=== PATIENT | female | born 1965 | race Caucasian/White ===

== ENCOUNTER 2020-11-27 15:43 | Emergency (ER) | payer BC ==
--- NOTE | 2020-11-27 17:14 | ED ---
General Adult HPI <Jose C Toribio - Last Filed: 11/27/20 17:13> <Haydee Gold - Last Filed: 11/27/20 23:31> - General Stated complaint: Female UG - History of Present Illness Initial comments: 55-year-old female presents to the emergency Department with a chief complaint of a vaginal lesion. Patient reports this been ongoing for the past several months. States it is located in the labia and it is starting to be tender now. Does report some swelling with white and purple discoloration. Has history of a Bartholin's cyst about 3 decades ago. Denies any urinary symptoms. Denies any fevers or chills. Denies abdominal pain. Denies any vaginal bleeding, discharge. Denies fevers or chills. (Jose C Toribio) - Related Data Allergies Allergy/AdvReac Type Severity Reaction Status Date / Time No Known Allergies Allergy Verified 11/27/20 17:16 Review of Systems ROS Other: All systems not noted in ROS Statement are negative. <Jose C Toribio - Last Filed: 11/27/20 17:13> ROS Other: All systems not noted in ROS Statement are negative. <Haydee Gold - Last Filed: 11/27/20 23:31> ROS Statement: Those systems with pertinent positive or pertinent negative responses have been documented in the HPI. Course Vital Signs 11/27/20 17:08 Temperature 98.0 F Pulse Rate 87 Respiratory 20 Rate Blood Pressure 181/78 O2 Sat by Pulse 99 Oximetry Medical Decision Making <Haydee Gold - Last Filed: 11/27/20 23:31> - Medical Decision Making Upon arrival patient is placed into room 21. Thorough history and physical exam is performed. Evaluation of the patient's vagina demonstrates a large lesion located adjacent to the urethral opening on the right labia minora. 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 Patient is informed that these have cancerous potential and that it must be removed by an PROPULSION ENGINEER. Patient understood this. She was given multiple referrals for PROPULSION ENGINEER's in the area. Instructed to call Dr. Pandya first as she is on-call. Patient understood this. Given written and verbal discharge instructions and discharged home in stable condition (Haydee Gold) - Lab Data Lab Results 11/27/20 Range/Units 17:25 Urine Color Light Yellow Urine Appearance Cloudy H (Clear) Urine pH 5.5 (5.0-8.0) Ur Specific [place] 1.011 (1.001-1.035) Urine Protein Negative (Negative) Urine Glucose (UA) Negative (Negative) Urine Ketones Negative (Negative) Urine Blood Trace H (Negative) Urine Nitrite Negative (Negative) Urine Bilirubin Negative (Negative) Urine Urobilinogen <2.0 (<2.0) mg/dL Ur Leukocyte Esterase Large H (Negative) Urine RBC 6 H (0-5) /hpf Urine WBC 135 H (0-5) /hpf Ur Squamous Epith Cells 14 H (0-4) /hpf Urine Bacteria Rare H (None) /hpf Urine Mucus Rare H (None) /hpf Disposition <Jose C Toribio - Last Filed: 11/27/20 17:13> Is patient prescribed a controlled substance at d/c from ED?: No Time of Disposition: 18:58 <Haydee Gold - Last Filed: 11/27/20 23:31> Clinical Impression: Vaginal mass Disposition: HOME SELF-CARE Condition: Stable Instructions (If sedation given, give patient instructions): Genital Warts (ED) Additional Instructions: You have a mass on your vagina. You need to see an OBGYN in order to have it removed. Return to the ED for any new or worsening symptoms. Dr. Pandya is the showroom consultant doctor that you should call first. Dr. Martinez is a physican out of [facility] Referrals: Ilene Pandya MD [STAFF PHYSICIAN] - 1-2 days Wili Quijano DO [Doctor of Osteopathic Medicine] - 1-2 days Haydee Martinez DO [Doctor of Osteopathic Medicine] - 1-2 days
[2020-11-27 17:16] VITALS: BP 181/78; PULSE 87; RESP 20; TEMP 98
[2020-11-27 17:39] LABS: Appearance,Urine Cloudy (Clear); Bacteria,Urine Rare /hpf; Bilirubin,Urine Negative (Negative); Blood,Urine Trace (Negative); Color,Urine Light Yellow; Glucose,Urine (UA) Negative (Negative); Ketones,Urine Negative (Negative); Leukocyte Esterase,Urine Large (Negative); Mucus,Urine Rare /hpf; Nitrite,Urine Negative (Negative); PH, Urine 5.5 (5.0-8.0); Protein,Urine Negative (Negative); RBC,Urine 6 /hpf (0-5); Specific Gravity,Urine 1.011 (1.001-1.035); Squamous Epithelial Cell,Urine 14 /hpf (0-4); Urobilinogen,Urine <2.0 mg/dL (<2.0); WBC,Urine 135 /hpf (0-5)
== END 2020-11-27 19:04 | disposition home or self-care (01) ==
LOC: EC 15:43
DX: N89.8 Other specified noninflammatory disorders of vagina (principal)
CPT/HCPCS: 81001; 87086; 99283

== ENCOUNTER → 2021-05-08 | Outpatient (CLI) | payer BC | END | disposition home or self-care (01) | LOC: LABWHC1 15:57 | PROVIDERS: ATTEND Internal Medicine Medical Oncology | DX: R79.89 Other specified abnormal findings of blood chemistry (principal) | CPT/HCPCS: 36415; 84439; 84443; 84481 ==

== ENCOUNTER → 2022-02-24 | Outpatient (CLI) | payer BC ==
[2022-02-24 23:18] LABS: Basophils # (A) 0.03 X 10*3/uL (0.00-0.10); Basophils % (A) 0.4 %; Eosinophils # (A) 1.33 X 10*3/uL (0.04-0.35); Eosinophils % (A) 17.8 %; HCT 35.1 % (37.2-46.3); Immature Grans, Automated 0.1 %; MCH 29.2 pg (27.0-32.0); MCHC 31.3 g/dL (32.0-37.0); MCV 93.1 fL (80.0-97.0); Monocytes % (A) 6.7 %; NRBC Per 100 WBC 0 /100 WBCS (0.0-0.0); Neutrophils # (A) 4.41 X 10*3/uL (1.80-7.70); Platelet Count 244 X 10*3/uL (140-440); RBC 3.77 X 10*6/uL (4.10-5.20); RBC Morphology NORMAL; RDW 14.6 % (11.5-14.5); WBC 7.48 X 10*3/uL (4.50-10.00)
== END | disposition home or self-care (01) ==
LOC: LABWHC1 15:40
PROVIDERS: ATTEND Internal Medicine Medical Oncology
DX: D64.9 Anemia, unspecified (principal)
CPT/HCPCS: 36415; 85025

== ENCOUNTER 2022-12-08 10:22 | Emergency (ER) | payer BC ==
[2022-12-08] MEDS ORDERED: SODIUM CHLORIDE 0.9% 2,000 ML IV STA (10:56)
[2022-12-08] MEDS ORDERED: KETOROLAC 15 MG/ML 1 ML VIAL IVP STA (11:02)
[2022-12-08 11:47] LABS: Basophils % (A) 0 %; Eosinophils % (A) 0 %; HCT 34.5 % (34.0-46.0); Lymphocytes # (A) 1.2 k/uL (1.0-4.8); Lymphocytes % (A) 15 %; MCH 28.7 pg (25.0-35.0); MCHC 34.7 g/dL (31.0-37.0); MCV 82.7 fL (80.0-100.0); Mean Platelet Volume 7.6; Monocytes # (A) 0.6 k/uL (0-1.0); Monocytes % (A) 7 %; Neutrophils # (A) 6.4 k/uL (1.3-7.7); Neutrophils % (A) 76 %; Platelet Count 207 k/uL (150-450); RBC 4.16 m/uL (3.80-5.40); RDW 14.8 % (11.5-15.5); WBC 8.4 k/uL (3.8-10.6)
[2022-12-08 12:01] LABS: Albumin 3.5 g/dL (3.5-5.0); Calcium 8.6 mg/dL (8.4-10.2); Potassium 3.8 mmol/L (3.5-5.1); Total Bilirubin 1.3 mg/dL (0.2-1.3); Total Protein 6.7 g/dL (6.3-8.2)
--- NOTE | 2022-12-08 13:16 | CT ---
EXAMINATION TYPE: CT abdomen pelvis w con CT DLP: 79.9 mGycm, Automated exposure control for dose reduction was used. DATE OF EXAM: 12/08/2022 12:55 PM COMPARISON: CT abdomen pelvis most recent from 03/19/2022. CLINICAL INDICATION:Female, 57 years old with history of LLQ pain; TECHNIQUE: Axial CT of the abdomen and pelvis. Sagittal and coronal reformats were created on a [employer] workstation. Contrast used: Isovue 300 100 cc. Oral contrast used: None FINDINGS: LOWER CHEST: Unremarkable ABDOMEN LIVER: Unremarkable GALLBLADDER AND BILE DUCTS: Unremarkable. PANCREAS: Unremarkable. SPLEEN: Splenule is present. ADRENAL GLANDS: Unremarkable. KIDNEYS AND URETERS: No evidence of hydronephrosis or renal calculus. The ureters are unremarkable. PELVIS BLADDER: Unremarkable REPRODUCTIVE: Unremarkable. ABDOMEN & PELVIS STOMACH AND BOWEL: No evidence of bowel obstruction. PERITONEUM/RETROPERITONEUM: No evidence of pneumoperitoneum or free fluid. VASCULATURE: No evidence of aortic aneurysm. There is loss of visualization of the left external marcy c vein with reconstitution at the common iliac vein. MUSCULOSKELETAL: There is soft tissue masses within the left external iliac chain measuring up to 6.9 x 5.1 cm and 3.0 x 2.1 cm. LYMPH NODES: Bilateral inguinal lymphadenopathy are present. Enlarged lymph nodes also extend into th e superficial femoral chain of the left proximal extremity. Right inguinal lymph nodes measuring up t o 2.1 cm in short axis. Which is decreased in from prior on 03/19/2022 outside institution film. The l eft inguinal region lymph nodes have increased in size measuring up to 1.9 cm in short axis, previous ly subcentimeter in size. SOFT TISSUE/ABDOMINAL WALL: There is lymphadenopathy that extends to the labia majora/mons pubis, on the right. IMPRESSION: New left external iliac chain lymphadenopathy as well as enlarged lymph nodes within the bilateral in guinal regions and proximal aspect of the left superficial femoral chain. All of these are increased in size from prior except the conglomerate lymphadenopathy within the right inguinal region has decre ased from 03/19/2022. The left side enlarged lymph node compresses the left external chain vasculature with loss of visualization of the left external vein with reconstitution at the common femoral vein.
[2022-12-08] MEDS ORDERED: ACETAMINOPHEN TAB 500 MG TAB PO STA ×2 (13:44→17:18)
[2022-12-08 15:54] LABS: Appearance,Urine Clear (Clear); Bacteria,Urine Rare /hpf; Bilirubin,Urine Negative (Negative); Blood,Urine Negative (Negative); Color,Urine Yellow; Glucose,Urine (UA) Negative (Negative); Ketones,Urine 1+ (Negative); Leukocyte Esterase,Urine Large (Negative); Mucus,Urine Rare /hpf; Nitrite,Urine Negative (Negative); Protein,Urine Trace (Negative); RBC,Urine 5 /hpf (0-5); Squamous Epithelial Cell,Urine 1 /hpf (0-4); Urobilinogen,Urine <2.0 mg/dL (<2.0); WBC,Urine 19 /hpf (0-5)
[2022-12-08 16:04] LABS: Specific Gravity,Urine >1.050 (1.001-1.035)
[2022-12-08] MEDS ORDERED: SODIUM CHLORIDE 0.9% 1,000 ML IV STA (16:11)
[2022-12-08] MEDS ORDERED: PIPERACILLIN-TAZOBACTAM 3.375 GM in SODIUM CHLORIDE 0.9% 100 ML IVPB STA (17:14)
[2022-12-08] MEDS ORDERED: HYDROCORTISONE SUCCINATE 100 MG/2 ML VIAL IV STA (17:15)
--- NOTE | 2022-12-08 17:25 | ED ---
Weakness HPI - General Chief complaint: Weakness Stated complaint: CA patient dizzy and weak Time Seen by Provider: 12/08/22 10:55 Source: patient, family Mode of arrival: wheelchair Limitations: no limitations - History of Present Illness Initial comments: Patient is a 57-year-old female who presents to the emergency department with a chief complaint of weakness. 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 She follows with Dr. Bell at [facility]. Patient states over the past couple days she has felt more weak than her usual weakness secondary to cancer. No recent falls. She also reports light headedness and intermittent fever. Patient also has pain in her left lower abdomen. There is no radiation. No nausea, vomiting, burning with urination, blood in the urine, diarrhea, blood in stool. She denies headache, visual symptoms, cold like symptoms. No chest pain or shortness of breath. Patient does have history of adrenal insufficiency. She has been taking her hydrocortisone as directed. - Related Data Home Medications Medication Instructions Recorded Confirmed Hydrocortisone Cream 1 applic TOPICAL BID PRN 12/08/22 12/08/22 [Hydrocortisone 1% Cream] Hydrocortisone [Cortef] 5 mg PO DAILY@1400 12/08/22 12/08/22 Hydrocortisone [Cortef] 10 mg PO DAILY@0800 12/08/22 12/08/22 Levothyroxine Sodium [Synthroid] 50 mcg PO MOTUWETHFRSA 12/08/22 12/08/22 Mirtazapine 7.5 mg PO HS 12/08/22 12/08/22 Sennosides/Docusate Sodium 1 tab PO BID PRN 12/08/22 12/08/22 [Senna-S 8.6-50 mg Tablet] prednisoLONE ACETATE 1% OPHTH 1 drops BOTH EYES Q3D 12/08/22 12/08/22 [Pred Forte 1%] Allergies Allergy/AdvReac Type Severity Reaction Status Date / Time No Known Allergies Allergy Verified 12/08/22 13:05 Review of Systems ROS Statement: Those systems with pertinent positive or pertinent negative responses have been documented in the HPI. ROS Other: All systems not noted in ROS Statement are negative. Past Medical History Past Medical History: Cancer History of Any Multi-Drug Resistant Organisms: None Reported Past Surgical History: No Surgical Hx Reported Past Psychological History: No Psychological Hx Reported Smoking Status: Never smoker Past Alcohol Use History: None Reported Past Drug Use History: None Reported General Exam Limitations: no limitations General appearance: alert, in no apparent distress Head exam: Present: atraumatic, normocephalic, normal inspection Eye exam: Present: normal appearance, PERRL, EOMI. Absent: scleral icterus, conjunctival injection, periorbital swelling ENT exam: Present: normal oropharynx, TM's normal bilaterally Respiratory exam: Present: normal lung sounds bilaterally. Absent: respiratory distress, wheezes, rales, rhonchi, stridor Cardiovascular Exam: Present: regular rate, normal rhythm, normal heart sounds. Absent: systolic murmur, diastolic murmur, rubs, gallop, clicks GI/Abdominal exam: Present: soft, tenderness (LLQ), normal bowel sounds. Absent: distended, guarding, rebound, rigid Neurological exam: Present: alert, oriented X3, CN II-XII intact Expanded Speech: Present: fluid speech Cranial nerves: EOM's Intact: Normal, Facial Sensation: Normal, Facial Palsy with Forehead Movement: Normal, Facial Palsy without Forehead Movement: Normal Cerebellar function: Finger to Nose: Normal, Heel to Delgado: Normal Sensory exam: Upper Extremity Light Touch: Normal, Lower Extremity Light Touch: Normal Motor strength exam: RUE: 5, LUE: 5, RLE: 5, LLE: 5 Psychiatric exam: Present: normal affect, normal mood Skin exam: Present: warm, dry, intact, normal color. Absent: rash Course Vital Signs 12/08/22 12/08/22 12/08/22 10:46 11:58 13:41 Temperature 100.5 F H 101.5 F H Pulse Rate 119 H 103 H 92 Respiratory 18 18 16 Rate Blood Pressure 116/76 115/59 111/57 O2 Sat by Pulse 98 98 97 Oximetry 12/08/22 12/08/22 12/08/22 15:03 17:21 18:33 Temperature 100.5 F H 98.3 F 98.9 F Pulse Rate 82 72 Respiratory 16 16 Rate Blood Pressure 93/49 97/48 O2 Sat by Pulse 97 96 Oximetry 12/08/22 19:40 Temperature 97.9 F Pulse Rate 78 Respiratory 16 Rate Blood Pressure 94/56 O2 Sat by Pulse 98 Oximetry Medical Decision Making - Medical Decision Making EKG taken at 15:50, interpreted by me Sinus rhythm, nonspecific T-wave abnormality Ventricular rate 108, ND interval 142, QRS duration 94, QTC 408 Was pt. sent in by a medical professional or institution (DAKOTAH Bland, OCEAN EXPORT ACCOUNT MANAGER, urgent care, hospital, or usp...) When possible be specific @ -[No] Did you speak to anyone other than the patient for history (EMS, parent, family, police, friend...)? What history was obtained from this source @ -[No] Did you review nursing and triage notes (agree or disagree)? Why? @ -[I reviewed and agree with nursing and triage notes] Were old charts reviewed (outside hosp., previous admission, EMS record, old EKG, old radiological studies, urgent care reports/EKG's, usp records)? Report findings @ -[No old charts were reviewed] Differential Diagnosis (chest pain, altered mental status, abdominal pain women, abdominal pain men, vaginal bleeding, weakness, fever, dyspnea, syncope, headache, dizziness, GI bleed, back pain, seizure, CVA, palpatations, mental health)? @ -Differential Abdominal Pain Women: melanoma METS, Appendicitis, Cholecystitis, diverticulosis, ischemic bowel, pancreatitis, hepatitis, UTI, gastroenteritis, AAA, incarcerated hernia, bowel obstruction, constipation, inflammatory bowel, hepatitis, peptic ulcer disease, splenic infarction, perforated viscus, vulvitis, ovarian torsion, PID, kidney stone, placenta abruption, this is not meant to be an all-inclusive list EKG interpreted by me (3pts min.). @ -[As above] X-rays interpreted by me (1pt min.). @ -[None done] CT interpreted by me (1pt min.). @ -Yes, External iliac chain lymphadenopathy as well as enlarged lymph nodes within the bilateral inguinal region and proximal aspect of the left superficial femoral vein U/S interpreted by me (1pt. min.). @ -[None done] What testing was considered but not performed or refused? (CT, X-rays, U/S, labs)? Why? @ -[None] What meds were considered but not given or refused? Why? @ -[None] Did you discuss the management of the patient with other professionals (professionals i.e. DAKOTAH Bland, OCEAN EXPORT ACCOUNT MANAGER, lab, RT, psych nurse, geriatric social worker, mutual fund analyst, teacher, executive vice president and chief operating officer, director case management)? Give summary @ -Yes, Dr. Woodall, Dr. Bell, Dr. Kay. See hospital course. Was smoking cessation discussed for >3mins.? @ -[No] Was critical care preformed (if so, how long)? @ -Yes, 60 minutes Were there social determinants of health that impacted care today? How? (Homelessness, low income, unemployed, alcoholism, drug addiction, transportation, low edu. Level, literacy, decrease access to med. care, correction, rehab)? @ -[No] Was there de-escalation of care discussed even if they declined (Discuss DNR or withdrawal of care, Hospice)? DNR status @ -[No] What co-morbidities impacted this encounter? (DM, HTN, Smoking, COPD, CAD, Cancer, CVA, ARF, Chemo, Hep., AIDS, mental health diagnosis, sleep apnea, morbid obesity)? @ -[None] Was patient admitted / discharged? Hospital course, mention meds given and route, prescriptions, significant lab abnormalities, going to OR and other pertinent info. @ -This is a cancer patient presenting for evaluation of weakness and fever. Patient appears dehydrated she is mildly tachycardic at 103 and 101.5F. Laboratory studies obtained. There is no leukocytosis. There is mild hyponatremia at 1:30 treated with saline bolus. Lactic is within normal limits. Urinalysis with his question of infection however patient does not have UTI symptoms. Influenza, RSV, COVID-19 not detected. Blood cultures pending. CT of the abdomen and pelvis with contrast shows new left external iliac chain lymphadenopathy as well as enlarged lymph nodes within the bilateral inguinal regions and proximal aspect of the left superficial femoral chain. I spoke with patient's oncologist Dr. Bell personally over the phone. We did review the CT imaging at [facility] in June in comparison to 2 days. Patient has increased size of pelvic lymph node otherwise she is responding to immunotherapy. Dr. Bell did ask for additional laboratory studies which were ordered. She requests patient is admitted for further evaluation and workup of symptoms and fever. Patient was given hydrocortisone 100 mg IV and antibiotic coverage. Dr. Bell will gladly take a call for any updates. The physician to physician number is [phone]. Blood pressure did drop to the 90s/40s it did remain stable on maintenance fluids. Case discussed with Dr. Woodall accepts admission. Oncology is on consult. Shortly after admission Dr. Bell called me again asking for CT of the brain to be obtained given as patient has had some lightheadedness with cancer history. This showed two hemorrhagic lesions within the brain reflecting likely melanoma metastases. No evidence for midline shift. Radiology could not reach Dr. Woodall critical image was reported to me. There are no neurological deficits on exam. Dr. San did talk Dr. Woodall he will keep patient I spoke with Dr. Kay who accepts consult. Spoke with Dr. Bell again who requests patient is transferred for neurosurgical evaluation. Case discussed with Dr. Dennis at [facility] who accepts transfer. Patient transferred in stable condition. Undiagnosed new problem with uncertain prognosis? @ -[No] Drug Therapy requiring intensive monitoring for toxicity (Heparin, Nitro, Insulin, Cardizem)? @ -[No] Were any procedures done? @ -[No] Diagnosis/symptom? 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 @ -acute Uncomplicated (without systemic symptoms) or Complicated (systemic symptoms)? @ -[default] Side effects of treatment? @ -[No] Exacerbation, Progression, or Severe Exacerbation? @ -[No] Poses a threat to life or bodily function? How? (Chest pain, USA, CO, pneumonia, PE, COPD, DKA, ARF, appy, cholecystitis, CVA, Diverticulitis, Homicidal, Suicidal, threat to staff... and all critical care pts) @ -[No] - Lab Data Result diagrams: 12/08/22 11:10 12/08/22 11:34 Lab Results 12/08/22 12/08/22 12/08/22 Range/Units 11:10 11:34 11:34 WBC 8.4 (3.8-10.6) k/uL RBC 4.16 (3.80-5.40) m/uL Hgb 12.0 (11.4-16.0) gm/dL Hct 34.5 (34.0-46.0) % MCV 82.7 (80.0-100.0) fL MCH 28.7 (25.0-35.0) pg MCHC 34.7 (31.0-37.0) g/dL RDW 14.8 (11.5-15.5) % Plt Count 207 (150-450) k/uL MPV 7.6 Neutrophils % 76 % Lymphocytes % 15 % Monocytes % 7 % Eosinophils % 0 % Basophils % 0 % Neutrophils # 6.4 (1.3-7.7) k/uL Lymphocytes # 1.2 (1.0-4.8) k/uL Monocytes # 0.6 (0-1.0) k/uL Eosinophils # 0.0 (0-0.7) k/uL Basophils # 0.0 (0-0.2) k/uL Sodium 130 L (137-145) mmol/L Potassium 3.8 (3.5-5.1) mmol/L Chloride 98 (98-107) mmol/L Carbon Dioxide 27 (22-30) mmol/L Anion Gap 5 mmol/L BUN 12 (7-17) mg/dL Creatinine 0.88 (0.52-1.04) mg/dL Est GFR (CKD-EPI)AfAm 86 (>60 ml/min/1.73 sqM) Est GFR (CKD-EPI)NonAf 74 (>60 ml/min/1.73 sqM) Glucose 93 (74-99) mg/dL Plasma Lactic Acid Zack 0.9 (0.7-2.0) mmol/L Calcium 8.6 (8.4-10.2) mg/dL Total Bilirubin 1.3 (0.2-1.3) mg/dL AST 27 (14-36) U/L ALT 15 (4-34) U/L Alkaline Phosphatase 65 (38-126) U/L Creatine Kinase (30-135) U/L Troponin I (0.000-0.034) ng/mL Total Protein 6.7 (6.3-8.2) g/dL Albumin 3.5 (3.5-5.0) g/dL Lipase (23-300) U/L TSH (0.465-4.680) mIU/L Free T4 (0.78-2.19) ng/dL Urine Color Urine Appearance (Clear) Urine pH (5.0-8.0) Ur Specific [place] (1.001-1.035) Urine Protein (Negative) Urine Glucose (UA) (Negative) Urine Ketones (Negative) Urine Blood (Negative) Urine Nitrite (Negative) Urine Bilirubin (Negative) Urine Urobilinogen (<2.0) mg/dL Ur Leukocyte Esterase (Negative) Urine RBC (0-5) /hpf Urine WBC (0-5) /hpf Ur Squamous Epith Cells (0-4) /hpf Urine Bacteria (None) /hpf Urine Mucus (None) /hpf Influenza Type A (PCR) (Not Detectd) Influenza Type B (PCR) (Not Detectd) RSV (PCR) (Not Detectd) SARS-CoV-2 (PCR) (Not Detectd) 12/08/22 12/08/22 12/08/22 Range/Units 13:43 13:43 13:43 WBC (3.8-10.6) k/uL RBC (3.80-5.40) m/uL Hgb (11.4-16.0) gm/dL Hct (34.0-46.0) % MCV (80.0-100.0) fL MCH (25.0-35.0) pg MCHC (31.0-37.0) g/dL RDW (11.5-15.5) % Plt Count (150-450) k/uL MPV Neutrophils % % Lymphocytes % % Monocytes % % Eosinophils % % Basophils % % Neutrophils # (1.3-7.7) k/uL Lymphocytes # (1.0-4.8) k/uL Monocytes # (0-1.0) k/uL Eosinophils # (0-0.7) k/uL Basophils # (0-0.2) k/uL Sodium (137-145) mmol/L Potassium (3.5-5.1) mmol/L Chloride (98-107) mmol/L Carbon Dioxide (22-30) mmol/L Anion Gap mmol/L BUN (7-17) mg/dL Creatinine (0.52-1.04) mg/dL Est GFR (CKD-EPI)AfAm (>60 ml/min/1.73 sqM) Est GFR (CKD-EPI)NonAf (>60 ml/min/1.73 sqM) Glucose (74-99) mg/dL Plasma Lactic Acid Zack 0.9 (0.7-2.0) mmol/L Calcium (8.4-10.2) mg/dL Total Bilirubin (0.2-1.3) mg/dL AST (14-36) U/L ALT (4-34) U/L Alkaline Phosphatase (38-126) U/L Creatine Kinase (30-135) U/L Troponin I (0.000-0.034) ng/mL Total Protein (6.3-8.2) g/dL Albumin (3.5-5.0) g/dL Lipase (23-300) U/L TSH (0.465-4.680) mIU/L Free T4 (0.78-2.19) ng/dL Urine Color Yellow Urine Appearance Clear (Clear) Urine pH 6.0 (5.0-8.0) Ur Specific [place] >1.050 H (1.001-1.035) Urine Protein Trace H (Negative) Urine Glucose (UA) Negative (Negative) Urine Ketones 1+ H (Negative) Urine Blood Negative (Negative) Urine Nitrite Negative (Negative) Urine Bilirubin Negative (Negative) Urine Urobilinogen <2.0 (<2.0) mg/dL Ur Leukocyte Esterase Large H (Negative) Urine RBC 5 (0-5) /hpf Urine WBC 19 H (0-5) /hpf Ur Squamous Epith Cells 1 (0-4) /hpf Urine Bacteria Rare H (None) /hpf Urine Mucus Rare H (None) /hpf Influenza Type A (PCR) Not Detected (Not Detectd) Influenza Type B (PCR) Not Detected (Not Detectd) RSV (PCR) Not Detected (Not Detectd) SARS-CoV-2 (PCR) Not Detected (Not Detectd) 12/08/22 12/08/22 Range/Units 17:18 17:18 WBC (3.8-10.6) k/uL RBC (3.80-5.40) m/uL Hgb (11.4-16.0) gm/dL Hct (34.0-46.0) % MCV (80.0-100.0) fL MCH (25.0-35.0) pg MCHC (31.0-37.0) g/dL RDW (11.5-15.5) % Plt Count (150-450) k/uL MPV Neutrophils % % Lymphocytes % % Monocytes % % Eosinophils % % Basophils % % Neutrophils # (1.3-7.7) k/uL Lymphocytes # (1.0-4.8) k/uL Monocytes # (0-1.0) k/uL Eosinophils # (0-0.7) k/uL Basophils # (0-0.2) k/uL Sodium (137-145) mmol/L Potassium (3.5-5.1) mmol/L Chloride (98-107) mmol/L Carbon Dioxide (22-30) mmol/L Anion Gap mmol/L BUN (7-17) mg/dL Creatinine (0.52-1.04) mg/dL Est GFR (CKD-EPI)AfAm (>60 ml/min/1.73 sqM) Est GFR (CKD-EPI)NonAf (>60 ml/min/1.73 sqM) Glucose (74-99) mg/dL Plasma Lactic Acid Zack (0.7-2.0) mmol/L Calcium (8.4-10.2) mg/dL Total Bilirubin (0.2-1.3) mg/dL AST (14-36) U/L ALT (4-34) U/L Alkaline Phosphatase (38-126) U/L Creatine Kinase 37 (30-135) U/L Troponin I <0.012 (0.000-0.034) ng/mL Total Protein (6.3-8.2) g/dL Albumin (3.5-5.0) g/dL Lipase 47 (23-300) U/L TSH 18.200 H (0.465-4.680) mIU/L Free T4 0.89 (0.78-2.19) ng/dL Urine Color Urine Appearance (Clear) Urine pH (5.0-8.0) Ur Specific [place] (1.001-1.035) Urine Protein (Negative) Urine Glucose (UA) (Negative) Urine Ketones (Negative) Urine Blood (Negative) Urine Nitrite (Negative) Urine Bilirubin (Negative) Urine Urobilinogen (<2.0) mg/dL Ur Leukocyte Esterase (Negative) Urine RBC (0-5) /hpf Urine WBC (0-5) /hpf Ur Squamous Epith Cells (0-4) /hpf Urine Bacteria (None) /hpf Urine Mucus (None) /hpf Influenza Type A (PCR) (Not Detectd) Influenza Type B (PCR) (Not Detectd) RSV (PCR) (Not Detectd) SARS-CoV-2 (PCR) (Not Detectd) Critical Care Time Critical Care Time: Yes Disposition Clinical Impression: Fever, Weakness, Lightheadedness, 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 Specs Out of Hospital Transfer - Requested Specifics: Other Emergency Center ([facility])
[2022-12-08] MEDS ORDERED: NALOXONE 0.4 MG/ML 1 ML VIAL IV PRN (17:38)
[2022-12-08 17:39] LABS: Creatine Kinase 37 U/L (30-135); Lipase 47 U/L (23-300)
[2022-12-08 17:58] LABS: T4, Free (Free Thyroxine) 0.89 ng/dL (0.78-2.19)
--- NOTE | 2022-12-08 18:40 | CT ---
"EXAMINATION TYPE: CT brain wo con DATE OF EXAM: 12/08/2022 COMPARISON: None HISTORY: H/O MELANOMA, DIZZINESS CT DLP: 1078.[address] of the brain was performed. The ventricles, basal cisterns and sulci overlying the cerebral convexities demonstrate mild enlargem ent. Hemorrhagic lesion noted left occipital lobe measuring 2.5 x 1.8 cm with mild surrounding edema. Luis tional hemorrhagic lesion right frontal paramedian location measuring 1.7 cm. There is also mild surr ounding edema There is decreased attenuation about the periventricular white matter and deep white matter of both c erebral hemispheres, compatible with chronic small vessel ischemia. Differential diagnosis does inclu de demyelination. No mass effects are seen.No midline shift. Osseous calvarium is intact. If symptoms persist consider MRI. IMPRESSION: 1. 2 hemorrhagic lesions are seen within the brain felt to reflect out melanoma metastases. No eviden ce for midline shift. No additional lesions seen with certainty. A Red level critical message alert has been initiated for Bud Woodall Jr, DO via the [employer] 36 0 | Critical Results System on 12/08/2022 6:37 PM. This message alert has been sent to Bud Woodall Jr, DO via the preferences provided by the clinician for the receipt of Radiology Critical Findings. Message ID [id number]."
[2022-12-08 19:42] VITALS: BP 94/56
[2022-12-08 20:42] VITALS: PULSE 73; RESP 18; TEMP 98
[2022-12-09] MEDS ORDERED: HYDROCORTISONE SUCCINATE 100 MG/2 ML VIAL IV SCH
== END 2022-12-08 22:12 | disposition other institution (70) ==
LOC: EC 10:22 → 5NMEDONC 18:19 → UNDOADMIN 18:19 → EC 22:12
DX: C79.31 Secondary malignant neoplasm of brain (principal); Z20.822 Contact with and (suspected) exposure to COVID-19
CPT/HCPCS: 36415; 93005; 84439; 80053; 84443; 82550; 83605; 83690; 84484; 85025; 81001; 87040; 87086; 87636; 70450; 74177; 99291; 96365; 96366; 96375 ×2; 96361 ×4; J2543; J1720; J1885; Q9967

== ENCOUNTER 2023-01-04 11:56 | Emergency (ER) | payer BC ==
[2023-01-04 12:04] VITALS: TEMP 97.9
[2023-01-04] MEDS ORDERED: DEXAMETHASONE SOD PHOSPHATE 10 MG/ML 1 ML VIAL IVP STA (12:42)
--- NOTE | 2023-01-04 12:50 | ED ---
General Adult HPI - General Chief complaint: Neuro Symptoms/Deficit Stated complaint: Weakness Time Seen by Provider: 01/04/23 12:15 Source: patient, RN notes reviewed, old records reviewed Mode of arrival: ambulatory Limitations: no limitations - History of Present Illness Initial comments: This is a 58-year-old female who presents emergency Department complaining of left-sided weakness. Patient states she was last feeling well on Tuesday night. Patient states all day yesterday she didn't feel well and felt weaker on her left side and today she is extremely weak and her left side. 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 Her radiology oncologist called her today and told her about the results of the CAT scan she had yesterday and told her that she had more swelling and he her steroid dose and he told her if she didn't feel any better she is to come to the emergency department and get IV steroids. Patient states after the extra steroid dose she did not feel better she still weak and left side so she came to the emergency department. - Related Data Home Medications Medication Instructions Recorded Confirmed Hydrocortisone [Cortef] 5 mg PO DAILY@1400 12/08/22 01/04/23 Hydrocortisone [Cortef] 10 mg PO DAILY@0800 12/08/22 01/04/23 Levothyroxine Sodium [Synthroid] 50 mcg PO MOTUWETHFRSA 12/08/22 01/04/23 Mirtazapine 7.5 mg PO HS 12/08/22 01/04/23 Sennosides/Docusate Sodium 1 tab PO DAILY PRN 12/08/22 01/04/23 [Senna-S 8.6-50 mg Tablet] Omeprazole 20 mg PO DAILY 01/04/23 01/04/23 Allergies Allergy/AdvReac Type Severity Reaction Status Date / Time No Known Allergies Allergy Verified 01/04/23 16:51 Review of Systems ROS Statement: Those systems with pertinent positive or pertinent negative responses have been documented in the HPI. ROS Other: All systems not noted in ROS Statement are negative. Past Medical History Past Medical History: Cancer Additional Past Medical History / Comment(s): Brain tumor. History of Any Multi-Drug Resistant Organisms: None Reported Past Surgical History: No Surgical Hx Reported Past Psychological History: No Psychological Hx Reported Smoking Status: Never smoker Past Alcohol Use History: None Reported Past Drug Use History: None Reported General Exam - General Exam Comments Initial Comments: GENERAL: Patient is well-developed and well-nourished. Patient is nontoxic and well- hydrated and is in mild distress. ENT: Neck is soft and supple. No significant lymphadenopathy is noted. Oropharynx is clear. Moist mucous membranes. Neck has full range of motion without eliciting any pain. EYES: The sclera were anicteric and conjunctiva were pink and moist. Extraocular movements were intact and pupils were equal round and reactive to light. Eyelids were unremarkable. PULMONARY: Unlabored respirations. Good breath sounds bilaterally. No audible rales r honchi or wheezing was noted. CARDIOVASCULAR: There is a regular rate and rhythm without any murmurs gallops or rubs. ABDOMEN: Soft and nontender with normal bowel sounds. SKIN: Skin is clear with no lesions or rashes and otherwise unremarkable. NEUROLOGIC: Patient is alert and oriented x3. Cranial nerves II through XII are grossly intact. She has left arm and left leg weakness 3 out of 5 compared to the left arm pain and was complete weakness of the left leg. MUSCULOSKELETAL: Normal extremities with adequate strength and full range of motion. LYMPHATICS: No significant lymphadenopathy is noted PSYCHIATRIC: Normal psychiatric evaluation. Limitations: no limitations Course Vital Signs 01/04/23 01/04/23 12:01 15:11 Temperature 97.9 F Pulse Rate 98 62 Respiratory 20 18 Rate Blood Pressure 141/73 143/75 O2 Sat by Pulse 99 98 Oximetry Medical Decision Making - Medical Decision Making EKG was interpreted by myself shows sinus rhythm at 70 bpm MI interval 120 QRS is 85 Q-T intervals 55 QTC is 389. Patient's EKG shows no ST segment elevation or depression. Patient's having multiple PVCs Was pt. sent in by a medical professional or institution (, PA, [employer], urgent care, hospital, or skilled nursing...) When possible be specific @ -Dr. Hernandez her radiology oncologist sent the patient in the emergency department Did you speak to anyone other than the patient for history (EMS, parent, family, police, friend...)? What history was obtained from this source @ -[No] Did you review nursing and triage notes (agree or disagree)? Why? @ -[I reviewed and agree with nursing and triage notes] Were old charts reviewed (outside hosp., previous admission, EMS record, old EKG, old radiological studies, urgent care reports/EKG's, skilled nursing records)? Report findings @ -View prior radiological studies and lab work and charts on this patient Differential Diagnosis (chest pain, altered mental status, abdominal pain women, abdominal pain men, vaginal bleeding, weakness, fever, dyspnea, syncope, headache, dizziness, GI bleed, back pain, seizure, CVA, palpatations, mental health, musculoskeletal)? @ -Differential CVA Ischemic stroke, hemorrhagic stroke, brain tumor, atypical migraine, Wernicke's encephalopathy, seizure, multiple sclerosis, meningitis, encephalitis, hypoglycemia, Guillain-Muñiz, electrolytes disturbance, myasthenia gravis.... This is not meant to be an all-inclusive list EKG interpreted by me (3pts min.). @ -[As above] X-rays interpreted by me (1pt min.). @ -[None done] CT interpreted by me (1pt min.). @ -CT of the brain was interpreted by myself. CT of the brain shows 2 lesions one in the right frontal is enlarging and has a 2 mm shift on the brain but it is no different from yesterday's CT U/S interpreted by me (1pt. min.). @ -[None done] What testing was considered but not performed or refused? (CT, X-rays, U/S, labs)? Why? @ -[None] What meds were considered but not given or refused? Why? @ -[None] Did you discuss the management of the patient with other professionals (professionals i.e. , PA, [employer], lab, RT, psych nurse, manager social media, military lawyer, te acher, nuclear officer, child welfare caseworker)? Give summary @ -I spoke with our radiologist oncologist and he spoke with the oncologist at [facility] and they wanted the patient transferred to [facility]. I spoke with the [facility] and they accepted the transfer Was smoking cessation discussed for >3mins.? @ -[No] Was critical care preformed (if so, how long)? @ -Minutes Were there social determinants of health that impacted care today? How? (Homelessness, low income, unemployed, alcoholism, drug addiction, transportation, low edu. Level, literacy, decrease access to med. care, long term, rehab)? @ -[No] Was there de-escalation of care discussed even if they declined (Discuss DNR or withdrawal of care, Hospice)? DNR status @ -[No] What co-morbidities impacted this encounter? (DM, HTN, Smoking, COPD, CAD, Cancer, CVA, ARF, Chemo, Hep., AIDS, mental health diagnosis, sleep apnea, morbid obesity)? @ -[None] Was patient admitted / discharged? Hospital course, mention meds given and route, prescriptions, significant lab abnormalities, going to OR and other pertinent info. @ -Patient was given IV Decadron here I spoke with [facility] and are radiology oncologist and we determined it was best to have the patient transferred to their facility for higher level of care Undiagnosed new problem with uncertain prognosis? @ -[No] Drug Therapy requiring intensive monitoring for toxicity (Heparin, Nitro, Insulin, Cardizem)? @ -[No] Were any procedures done? @ -[No] Diagnosis/symptom? @ -Metastatic brain lesion Acute, or Chronic, or Acute on Chronic? @ -Acute on chronic Uncomplicated (without systemic symptoms) or Complicated (systemic symptoms)? @ -Complicated Side effects of treatment? @ -[No] Exacerbation, Progression, or Severe Exacerbation? @ -[No] Poses a threat to life or bodily function? How? (Chest pain, [place], [place], pneumonia, PE, COPD, DKA, ARF, appy, cholecystitis, CVA, Diverticulitis, Homicidal, Suicidal, threat to staff... and all critical care pts) @ -Yes this could lead to a more midline shift and more morbidity or mortality - Lab Data Result diagrams: 01/04/23 12:47 01/04/23 12:47 Lab Results 01/04/23 01/04/23 Range/Units 12:47 12:47 WBC 8.3 (3.8-10.6) k/uL RBC 4.80 (3.80-5.40) m/uL Hgb 13.6 (11.4-16.0) gm/dL Hct 44.4 (34.0-46.0) % MCV 92.5 D (80.0-100.0) fL MCH 28.3 (25.0-35.0) pg MCHC 30.6 L (31.0-37.0) g/dL RDW 17.4 H (11.5-15.5) % Plt Count 234 (150-450) k/uL MPV 7.3 Neutrophils % 95 % Lymphocytes % 2 % Monocytes % 3 % Eosinophils % 0 % Basophils % 0 % Neutrophils # 7.8 H (1.3-7.7) k/uL Lymphocytes # 0.2 L (1.0-4.8) k/uL Monocytes # 0.2 (0-1.0) k/uL Eosinophils # 0.0 (0-0.7) k/uL Basophils # 0.0 (0-0.2) k/uL Anisocytosis Slight Sodium 134 L (137-145) mmol/L Potassium 4.5 (3.5-5.1) mmol/L Chloride 98 (98-107) mmol/L Carbon Dioxide 28 (22-30) mmol/L Anion Gap 8 mmol/L BUN 21 H (7-17) mg/dL Creatinine 0.86 (0.52-1.04) mg/dL Est GFR (CKD-EPI)AfAm 87 (>60 ml/min/1.73 sqM) Est GFR (CKD-EPI)NonAf 76 (>60 ml/min/1.73 sqM) Glucose 136 H (74-99) mg/dL Calcium 8.4 (8.4-10.2) mg/dL Magnesium 2.1 (1.6-2.3) mg/dL Total Bilirubin 0.5 (0.2-1.3) mg/dL AST 28 (14-36) U/L ALT 36 H (4-34) U/L Alkaline Phosphatase 64 (38-126) U/L Total Protein 6.2 L (6.3-8.2) g/dL Albumin 3.6 (3.5-5.0) g/dL Critical Care Time Critical Care Time: Yes Total Critical Care Time: 35 Disposition Clinical Impression: Metastatic cancer to brain Disposition: OTHER INSTITUTION NOT DEFINED Referrals: Sony Oneill MD [Primary Care Provider] - 1-2 days Time of Disposition: 17:05 - Out of Hospital Transfer - Req. Specs Out of Hospital Transfer - Requested Specifics: Other Emergency Center ([facility])
[2023-01-04 13:04] LABS: Anisocytosis Slight; Basophils % (A) 0 %; Eosinophils % (A) 0 %; HCT 44.4 % (34.0-46.0); HGB 13.6 gm/dL (11.4-16.0); Lymphocytes # (A) 0.2 k/uL (1.0-4.8); Lymphocytes % (A) 2 %; MCH 28.3 pg (25.0-35.0); MCHC 30.6 g/dL (31.0-37.0); Mean Platelet Volume 7.3; Monocytes # (A) 0.2 k/uL (0-1.0); Monocytes % (A) 3 %; Neutrophils # (A) 7.8 k/uL (1.3-7.7); Neutrophils % (A) 95 %; Platelet Count 234 k/uL (150-450); RDW 17.4 % (11.5-15.5); WBC 8.3 k/uL (3.8-10.6)
[2023-01-04 13:07] LABS: Albumin 3.6 g/dL (3.5-5.0); Calcium 8.4 mg/dL (8.4-10.2); Magnesium 2.1 mg/dL (1.6-2.3); Potassium 4.5 mmol/L (3.5-5.1); Total Bilirubin 0.5 mg/dL (0.2-1.3); Total Protein 6.2 g/dL (6.3-8.2)
[2023-01-04 13:14] LABS: MCV 92.5 fL (80.0-100.0)
--- NOTE | 2023-01-04 13:55 | CT ---
EXAMINATION TYPE: CT brain wo con CT DLP: 1099.4 mGycm, Automated exposure control for dose reduction was used. DATE OF EXAM: 01/04/2023 1:35 PM COMPARISON: Prior CT Brain from 12/08/2022, MRI brain 12/09/2022. CLINICAL INDICATION:Female, 58 years old with history of weak, Left sided weakness. History of melano ma TECHNIQUE: Brain: Multiple axial CT images of the brain were obtained without IV contrast. Coronal and sagittal reformats reviewed. FINDINGS: Brain: Extra-axial spaces: No abnormal extra-axial fluid collections. Ventricular system: Within normal limits Cerebral parenchyma: Increase in size of right frontal lobe hyperattenuating mass with surrounding va sogenic edema. The mass measures 3.9 x 2.8 cm, previously measured 1.8 x 1.7 cm. Less prominent appea camelia of left occipital lobe mixed density mass measuring grossly 2.6 x 1.7 cm which is stable from p rior examination in size. The hyperdense component has decreased from prior exam. There is some mild surrounding edema. The guillaume-white junction is well differentiated. Scattered hypoattenuating areas ar e seen within the white matter compatible with chronic small vessel ischemia. Cerebellum: Unremarkable. Mass effect: Leftward midline shift at 2.5 mm. Intracranial vasculature: unremarkable Soft tissues: Normal. Calvarium/osseous structures: No depressed skull fracture. Paranasal sinuses and mastoid air cells: Clear Visualized orbits: Orbital contents are intact. IMPRESSION: Interval increase in size of hemorrhagic lesion within the right frontal lobe with now 2 mm midline s hift to the left. Stable hemorrhagic lesion within the left occipital lobe. These are compatible with reported history of melanoma. Consider further evaluation with MRI brain. Findings called to and discussed with Dr. San at 1:52 PM on 01/04/2023.
[2023-01-04 16:59] VITALS: BP 154/83; PULSE 66; RESP 16
== END 2023-01-04 17:55 | disposition other institution (70) ==
LOC: EC 11:56
DX: C79.31 Secondary malignant neoplasm of brain (principal)
CPT/HCPCS: 36415; 93005; 80053; 83735; 85025; 70450; 99291; 96374; J1100

== ENCOUNTER → 2023-02-08 | Outpatient (CLI) | payer BC ==
--- NOTE | 2023-02-08 20:02 | MR ---
EXAMINATION TYPE: MR brain wo/w con DATE OF EXAM: 02/08/2023 7:34 PM CLINICAL INDICATION:Female, 58 years old with history of C79.31; Brain tumor removed January 11, 2023, [facility] COMPARISON:MRI outside institution, 12/09/2022 07/16/2022 TECHNIQUE: Multi planar, multi sequence imaging was performed through the brain including: T1, T2, In version recovery, susceptibility weighted imaging and gradient echo imaging and Diffusion weighted im aging. The patient was then given intravenous contrast and multi planar, T1 fat-saturation images wer e obtained. IV Contrast: 7 cc Gadavist FINDINGS: Postsurgical changes to the skull and scalp. Postsurgical changes the right frontal lobe posteriorly. Prior mass is no longer visualized there is heterogenous appearance of the surgical bed with layerin g debris in the largest cystic cavity. Overall area measures roughly 2.0 x 1.9 x 3.2 cm. Postcontrast imaging demonstrates enhancement along the medial margin example includes series 901 image 123. There is a cystic structure which is high T2 and demonstrates diffusion restriction. In the left chor oid plexus of the trigone measuring 21 x 13 mm which is seen on immediate prior and more solid-appear ing than the exam. It measured 28 x 14 mm on that exam on 12/09/2022. There is postcontrast enhancemen t most pronounced at the anterior-inferior aspect of the lesion series 902 image 16.r No new lesions identified within the brain. The bone marrow signal is within normal limits. Postsurgical changes to the skull. Paranasal sinuses and mastoid air cells: No significant paranasal sinus disease. Visualized orbits: Orbital contents are intact. IMPRESSION: 1. Postsurgical changes with right posterior frontal lobe surgical bed with the medial margin inferi alesia demonstrating postcontrast enhancement concerning for residual disease. 2. Left choroid plexus lesion remains present which has become more cystic compared to prior this le zahraa also demonstrates postcontrast enhancement along the anterior-inferior aspect concerning for per sistent disease.
== END | disposition home or self-care (01) ==
LOC: RADMRIMAIN 18:20
PROVIDERS: ATTEND Radiology Radiation Oncology
DX: C79.31 Secondary malignant neoplasm of brain (principal); C77.4 Secondary and unspecified malignant neoplasm of inguinal and lower limb lymph nodes; C43.59 Malignant melanoma of other part of trunk; C51.9 Malignant neoplasm of vulva, unspecified; Z92.3 Personal history of irradiation
CPT/HCPCS: 70553; A9585